=== PATIENT | female | born 1995 | race Caucasian/White ===

== ENCOUNTER → 2018-02-09 | Outpatient (CLI) | payer BC ==
[~2018-02-09] VITALS: Ht 165.1 cm; Wt 64.0 kg
[~2018-02-09] MED LIST: PRENATAL VITAM1 EA10 PO
[2018-02-09 10:01] VITALS: BP 119/74
== END | disposition home or self-care (01) ==
LOC: IVINF 09:30
DX: Z34.80 Encounter for supervision of other normal pregnancy, unspecified trimester (principal); Z31.82 Encounter for Rh incompatibility status; Z3A.00 Weeks of gestation of pregnancy not specified; Z67.91 Unspecified blood type, Rh negative
CPT/HCPCS: 96372; J2790